=== PATIENT | male | born 1980 | race Two or more races ===

== ENCOUNTER 2020-01-30 08:46 | Day surgery (SDC) | payer OTHER | END 2020-01-30 13:40 | disposition home or self-care (01) | LOC: AMB-ENDOS 08:46 → ADM 14:30 → AMB-ENDOS 14:30 | PROVIDERS: ATTEND Surgery | DX: K62.89 Other specified diseases of anus and rectum (principal); K64.1 Second degree hemorrhoids ==

== ENCOUNTER 2020-03-02 08:04 | Day surgery (SDC) | payer OTHER ==
[2020-03-02] MEDS ORDERED: COLACE100 MG PO (11:52)
[2020-03-02] MEDS ORDERED: PERCOCET 5-3251 EACH PO (11:52)
[2020-03-02] MEDS ORDERED: NEURONTIN300 MG PO (11:52)
== END 2020-03-02 20:30 | disposition home or self-care (01) ==
LOC: CIR.AMB 08:04
PROVIDERS: ATTEND Surgery
DX: K64.8 Other hemorrhoids (principal)